=== PATIENT | female | born 1985 | race Caucasian/White ===

== ENCOUNTER 2018-05-27 20:06 | Emergency (ER) | payer SELFPAY ==
--- NOTE | 2018-05-27 20:09 | NUR ---
CALLED TO BE TRIAGE NO RESPONSE PATIENT LEFT WITHOUT BEING SEEN BY DR. ZACARIAS. NO FURTHER CARE PROVIDED FOR PATIENT.
== END 2018-05-27 20:09 | disposition left against medical advice (07) ==
LOC: MED 20:06
DX: Z53.21 Procedure and treatment not carried out due to patient leaving prior to being seen by health care provider (principal)
CPT/HCPCS: 99285

== ENCOUNTER 2018-05-27 21:40 | Emergency (ER) | payer MEDICAID ==
[~2018-05-27] VITALS: Ht 157.5 cm; Wt 47.6 kg
[2018-05-27 21:45] VITALS: BP 127/80
[2018-05-27 21:47] VITALS: BP 127/80
== END 2018-05-27 23:25 | disposition left against medical advice (07) ==
LOC: MED 21:40
DX: J02.9 Acute pharyngitis, unspecified (principal); Z53.21 Procedure and treatment not carried out due to patient leaving prior to being seen by health care provider

== ENCOUNTER 2018-05-28 12:01 | Emergency (ER) | payer MEDICAID ==
[~2018-05-28] VITALS: Ht 157.5 cm; Wt 47.6 kg
[2018-05-28 12:35] VITALS: BP 116/79
[2018-05-28] MEDS: IBUPROFEN 400 MG TAB PO ONE (13:53)
[2018-05-28] MEDS: DEXAMETHASONE 10 MG/ML VIAL IM ONE (13:54)
[2018-05-28 15:12] VITALS: BP 112/78
== END 2018-05-28 15:13 | disposition home or self-care (01) ==
LOC: MED 12:01
DX: J03.90 Acute tonsillitis, unspecified (principal); F17.210 Nicotine dependence, cigarettes, uncomplicated; R03.0 Elevated blood-pressure reading, without diagnosis of hypertension; Z90.89 Acquired absence of other organs
CPT/HCPCS: 87081; 96372; 99284; J1100

== ENCOUNTER 2018-06-14 02:05 | Emergency (ER) | payer SELFPAY ==
[~2018-06-14] VITALS: Ht 157.5 cm; Wt 47.6 kg
[2018-06-14 02:08] VITALS: BP 133/70
--- NOTE | 2018-06-14 02:12 | NUR ---
PT TAKEN TO BED 6
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
--- NOTE | 2018-06-14 02:58 | NUR ---
X-Ray at bedside.
--- NOTE | 2018-06-14 03:25 | NUR ---
Dr. Ocasio evaluating patient at bedside.
[2018-06-14] MEDS ORDERED: ACETAMINOPHEN/CODEINE 300/30MG 1 TAB PO ONE (03:35)
[2018-06-14] MEDS ORDERED: KETOROLAC 30 MG/ML VIAL IM ONE (03:35)
--- NOTE | 2018-06-14 03:48 | NUR ---
EMT WITH PT, WRAPING FOOT.
--- NOTE | 2018-06-14 04:07 | NUR ---
Patient discharged with v/s stable. Written and verbal after care instructions given and explained. Patient alert, oriented and verbalized understanding of instructions. Ambulatory with steady gait. All questions addressed prior to discharge. ID band removed. Patient advised to follow up with PMD. Rx of naprosyn and tylenol with codeine was given. Patient educated on indication of medication including possible reaction and side effects. Opportunity to ask questions provided and answered.
[2018-06-14 04:09] VITALS: BP 122/77
== END 2018-06-14 04:07 | disposition home or self-care (01) ==
LOC: MED 02:05
DX: S92.352A Displaced fracture of fifth metatarsal bone, left foot, initial encounter for closed fracture (principal); F17.210 Nicotine dependence, cigarettes, uncomplicated; Z90.49 Acquired absence of other specified parts of digestive tract; W22.8XXA Striking against or struck by other objects, initial encounter; Y93.89 Activity, other specified; Y92.89 Other specified places as the place of occurrence of the external cause; Y99.8 Other external cause status
CPT/HCPCS: 29515; 73630; 81025; 96372; 99284; J1885; Q0092

== ENCOUNTER 2019-03-19 09:09 | Emergency (ER) | payer MEDICAID ==
[~2019-03-19] VITALS: Ht 157.5 cm; Wt 47.6 kg
[2019-03-19 09:14] VITALS: BP 153/91
[2019-03-19 09:15] VITALS: BP 153/91
--- NOTE | 2019-03-19 09:28 | NUR ---
PT TO RESTROOM THEN TO BED 4 WITH STEADY GAIT. FAMILY AT BEDSIDE.
--- NOTE | 2019-03-19 09:36 | NUR ---
dr pena at bedside
--- NOTE | 2019-03-19 09:40 | NUR ---
34 Y FEMALE BIB FAMILY C/O PERIUMBILICAL ABD PAIN X 03/02/19. PAINFUL URINATION AND PAINFUL BOWEL MOVEMENTS X 03/06/19. NO N/V/D. LAST BM YESTERDAY "PELLETS" "[employer]KE ROCKS." ABDOMEN SOFT AND FLAT. BOWEL SOUNDS ACTIVE IN ALL 4 QUADRANTS. PT TACHY AT 110. AA0X4. BED IS DOWN, LOCKED, BED RAIL X 1, ERMD TO SEE PT. HX: HEPATITIS C, IV HEROIN USE RX: DENIES
[2019-03-19 10:26] LABS: APPEARANCE,URINE SL CLOUDY (CLEAR); BILIRUBIN,URINE NEGATIVE (NEGATIVE); BLOOD, URINE NEGATIVE (NEGATIVE); COLOR,URINE YELLOW (YELLOW); LEUKOCYTE ESTERASE ,URINE 3+ (NEGATIVE); NITRITE, URINE NEGATIVE (NEGATIVE); UGLUCOSE NEGATIVE (NEGATIVE)
--- NOTE | 2019-03-19 10:39 | NUR ---
Patient discharged with v/s stable. Written and verbal after care instructions given and explained. Patient alert, oriented and verbalized understanding of instructions. Ambulatory with steady gait. All questions addressed prior to discharge. ID band removed. Patient advised to follow up with PMD. Rx of colace, miralax, cephalexin given. Patient educated on indication of medication including possible reaction and side effects. Opportunity to ask questions provided and answered. pt instructed that the microscopic results from her urine have not yet returned from lab. pt wishes to leave at this time.
[2019-03-19 10:41] LABS: RBC,URINE 0-5 /HPF (0-5)
[2019-03-19 10:42] LABS: WBC,URINE 80-100 /HPF (0-5)
== END 2019-03-19 10:39 | disposition home or self-care (01) ==
LOC: MED 09:09
DX: K59.00 Constipation, unspecified (principal); N39.0 Urinary tract infection, site not specified; F17.200 Nicotine dependence, unspecified, uncomplicated; F11.10 Opioid abuse, uncomplicated; R03.0 Elevated blood-pressure reading, without diagnosis of hypertension; Z71.51 Drug abuse counseling and surveillance of drug abuser; Z71.6 Tobacco abuse counseling; Z90.49 Acquired absence of other specified parts of digestive tract
CPT/HCPCS: 81001; 81025; 87086; 87186; 99283

== ENCOUNTER 2019-04-07 01:33 | Emergency (ER) | payer MEDICAID ==
[~2019-04-07] VITALS: Ht 154.9 cm; Wt 51.3 kg
[2019-04-07 01:35] VITALS: BP 105/77
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
[2019-04-07] MEDS ORDERED: cefTRIAXone 2,000 MG in DEXTROSE 5% 100 ML IV ONE (02:10)
[2019-04-07] MEDS ORDERED: NACL 0.9% 1,000 ML IV ONE (02:10)
[2019-04-07] MEDS ORDERED: KETOROLAC 15 MG/ML VIAL IVP ONE (02:10)
[2019-04-07] MEDS ORDERED: cefTRIAXone 2,000 MG VIAL ONE (02:24)
[2019-04-07 02:45] LABS: APPEARANCE,URINE CLOUDY (CLEAR); BILIRUBIN,URINE NEGATIVE (NEGATIVE); BLOOD, URINE TRACE-I (NEGATIVE); COLOR,URINE YELLOW (YELLOW); LEUKOCYTE ESTERASE ,URINE 3+ (NEGATIVE); NITRITE, URINE POSITIVE (NEGATIVE); UGLUCOSE NEGATIVE (NEGATIVE)
[2019-04-07 02:47] LABS: BASOPHILS % (AUTO) 0.5 % (0.0-2.0); EOSINOPHILS # (AUTO) 0.1 K/uL (0-0.4); EOSINOPHILS % (AUTO) 1.4 % (0.0-4.0); HEMATOCRIT 34.9 % (36-48); HEMOGLOBIN 11.5 g/dL (12.0-16.0); LYMPHOCYTES # (AUTO) 2.3 K/uL (2.5-16.5); MEAN CORPUSCULAR HEMOGLOBIN 29 pg (27-31); MEAN CORPUSCULAR HGB CONC 33 g/dL (33-37); MEAN CORPUSCULAR VOLUME 88.8 fL (80-94); MONOCYTES # (AUTO) 0.6 K/uL (0.8-1.0); MONOCYTES % (AUTO) 8.4 % (1.7-9.3); NEUTROPHILS # (AUTO) 4.1 K/uL (1.8-7.7); NEUTROPHILS % (AUTO) 57.7 % (42.2-75.2); PLATELET COUNT (AUTO) 415 K/uL (140-450); RED BLOOD CELL COUNT(AUTO) 3.94 MIL/uL (4.20-5.40); RED CELL DISTRIBUTION WIDTH 14.5 % (11.6-13.7); WHITE BLOOD COUNT (AUTO) 7.1 K/uL (4.8-10.8)
[2019-04-07 02:55] LABS: ANION GAP 12.6 (8-16); CREATININE 0.8 mg/dL (0.6-1.3); POTASSIUM 3.6 mmol/L (3.5-5.1)
[2019-04-07 02:57] LABS: WBC,URINE TOO MANY TO COUNT /HPF (0-5)
[2019-04-07 03:01] LABS: ALBUMIN 3.2 g/dL (3.4-5.0); TOTAL BILIRUBIN 0.1 mg/dL (0.0-1.0)
[2019-04-07] MEDS ORDERED: MORPHINE SULFATE 4 MG/ML SYR IVP ONE (03:40)
--- NOTE | 2019-04-07 03:44 | NUR ---
EKG PERFORMED AT BEDSIDE
--- NOTE | 2019-04-07 04:15 | NUR ---
PT RESTING IN BED WITH FLUIDS RUNNING. VSS. C/O 03/[address] PORRAS NOTIFIED.
[2019-04-07 04:21] LABS: CREATINE KINASE MB 0.9 ng/mL (0-3.6)
[2019-04-07 04:26] LABS: CHOL/HDL RATIO 3.1 (1-4.5)
--- NOTE | 2019-04-07 05:15 | NUR ---
Patient discharged with v/s stable. Patient acting appropriatly, states pain has decreased to 3/10. Written and verbal after care instructions given and explained. Patient alert, oriented and verbalized understanding of instructions. Ambulatory with steady gait. All questions addressed prior to discharge. ID band removed. Patient advised to follow up with PMD. Rx of Naprosyn, and Ciprofloxacin given. Patient educated on indication of medication including possible reaction and side effects. Opportunity to ask questions provided and answered.
[2019-04-07 05:16] VITALS: BP 152/95
== END 2019-04-07 05:15 | disposition home or self-care (01) ==
LOC: MED 01:33
DX: N10 Acute pyelonephritis (principal); Z90.49 Acquired absence of other specified parts of digestive tract
CPT/HCPCS: 36415; 71045; 80053; 80061; 81001; 81025; 82550; 82553; 83880; 84484; 85025; 85379; 87086; 87186; 93005; 96365; 96375; 99284; J0696; J1885; J2270; J7030; Q0092